=== PATIENT | female | born 1950 ===

== ENCOUNTER 2018-12-01 02:17 | Emergency (ER) | payer MEDICARE, MEDICAID ==
[2018-12-01 02:17] VITALS: BMI 16.8
[2018-12-01 02:22] VITALS: TEMP 97.4
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
[2018-12-01 04:12] VITALS: BP 112/45; PULSE 79; RESP 18; O2SAT 100
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
== END 2018-12-01 04:12 | disposition home or self-care (01) ==
LOC: ED 02:17
DX: S20.219A Contusion of unspecified front wall of thorax, initial encounter (principal); S29.011A Strain of muscle and tendon of front wall of thorax, initial encounter; V49.9XXA Car occupant (driver) (passenger) injured in unspecified traffic accident, initial encounter; F20.9 Schizophrenia, unspecified